=== PATIENT | male | born 1990 | race Two or more races ===

== ENCOUNTER 2025-08-23 17:52 | Emergency (ER) | payer SELFPAY ==
[~2025-08-23] VITALS: Ht 175.3 cm; Wt 83.9 kg
[2025-08-23] MEDS: IV NS 0.9% 1,000 ML BAG IV ONE (19:30)
[2025-08-23 19:49] LABS: PLATELET COUNT (AUTO) 349 K/uL (150-450); RED BLOOD CELL COUNT(AUTO) 5.10 MIL/uL (4.5-6.0); RED CELL DISTRIBUTION WIDTH 12.7 % (11.5-15.0); WHITE BLOOD COUNT (AUTO) 11.9 K/uL (4.3-11.0)
[2025-08-23 19:57] LABS: CALCIUM, SERUM 9.2 mg/dL (8.5-10.1); CREATININE 0.9 mg/dL (0.6-1.3); SODIUM SERUM 138.0 mmol/L (136-145); UREA NITROGEN, BLOOD 16.0 mg/dL (7-18)
[2025-08-23 20:44] VITALS: BP 125/80; TEMP 98.2; O2SAT 98
== END 2025-08-23 20:45 | disposition home or self-care (01) ==
LOC: ER 18:10
DX: R42 Dizziness and giddiness (principal); M79.661 Pain in right lower leg; M79.662 Pain in left lower leg
CPT/HCPCS: 99285; 96360; 71045; 93005; 85025; 80048; 36415; J7030